=== PATIENT | female | born 1960 | race Caucasian/White ===

== ENCOUNTER 2019-06-10 08:01 | Outpatient (CLI) | payer BC, SELFPAY ==
--- NOTE | ~2019-06-10 | DEXA_ITS ---
Bone Density Report Name: Toma Sorto Age: 58 Sex: Female Ethnicity: White Date of : 1960 Indication: osteopenia; height loss; Referring Provider: NGA MUSA Study: Bone densitometry was performed. Exam Date: June 10, 2019 Accession number: [id number] Bone Density: Region BMD T-score Z-score Classification AP Spine (L1-L4) 0.762 -2.6 -1.4 Osteoporosis Femoral Neck (Left) 0.606 -2.2 -1.0 Osteopenia Total Hip (Left) 0.846 -0.8 0.0 Normal Total Hip Bilateral Avg 0.836 -0.9 -0.1 Normal Femoral Neck (Right) 0.644 -1.9 -0.7 Osteopenia Total Hip (Right) 0.825 -1.0 -0.2 Normal World Health Organization criteria for BMD impression classify patients as: Normal (T-score at or above -1.0), Osteopenia (T-score between -1.0 and -2.5), or Osteoporosis (T-score at or below -2.5). 10-year Fracture Risk: FRAX not reported because: Some T-score for Spine Total or Hip Total or Femoral Neck at or below -2.5 Previous Exams: Region Exam Age BMD T-score BMD Change BMD Change Date g/cm2 vs Baseline vs Previous AP Spine(L1-L4) 06/10/2019 58 0.762 -2.6 -0.022(-2.8%)# -0.048(-5.9%)* 06/03/2015 54 0.809 -2.2 0.026(3.3%)# 0.026(3.3%)# 01/23/2012 51 0.784 -2.4 Total Hip(Left) 06/10/2019 58 0.846 -0.8 -0.030(-3.5%)# -0.049(-5.5%)* 06/03/2015 54 0.895 -0.4 0.019(2.2%)# 0.019(2.2%)# 01/23/2012 51 0.876 -0.5 Total Hip(Right) 06/10/2019 58 0.825 -1.0 0.021(2.7%)# -0.028(-3.3%)* 06/03/2015 54 0.853 -0.7 0.050(6.2%)# 0.050(6.2%)# 01/23/2012 51 0.803 -1.1 *Denotes significance at 95% confidence level, LSC for AP Spine = 0.022 g/cm2, LSC for Total Hip = 0.027 g/cm2 Clinical Information Provided by Patient: Has used the following medications: Vitamin D, Calcium Patient maximum height was 67 Menopause Age: 51 Onset of menses at age 13 Number of children 0 Impression: The patient has osteoporosis, based on the Total Spine T-score. The BMD for the AP Spine(L1-L4) decreased, changing by -5.9% since the last DXA exam. The BMD for the Total Hip(Left) decreased, changing by -5.5% since the last DXA exam. The BMD for the Total Hip(Right) decreased, changing by -3.3% since the last DXA exam. Discussion: INCREASED RISK OF FRACTURE. BONE DENSITY IS UNDESIRABLY LOW AT ONE OR MORE SKELETAL SITES, CONSISTENT WITH POSTMENOPAUSAL OSTEOPOROSIS. This patient's lowest T-score meets the World Health Organization's (WHO) criteria for o
== END 2019-06-10 08:02 | disposition home or self-care (01) ==
LOC: ANHIMG 08:04
PROVIDERS: Visit Provider Obstetrics & Gynecology
DX: Z78.0 Asymptomatic menopausal state (principal); M81.0 Age-related osteoporosis without current pathological fracture; M85.852 Other specified disorders of bone density and structure, left thigh; M85.851 Other specified disorders of bone density and structure, right thigh
CPT/HCPCS: 77080

== ENCOUNTER 2019-12-02 13:11 | Outpatient (CLI) | payer BC, SELFPAY ==
[2019-12-02 14:13] LABS: Vitamin D 25 Hydroxy 57.4 ng/mL
== END 2019-12-02 13:12 | disposition home or self-care (01) ==
PROVIDERS: Visit Provider Obstetrics & Gynecology
DX: M81.0 Age-related osteoporosis without current pathological fracture (principal)
CPT/HCPCS: 36415; 82306

== ENCOUNTER 2020-04-29 07:20 | Outpatient (CLI) | payer BC, SELFPAY ==
--- NOTE | ~2020-04-29 | MM_ITS ---
EXAMINATION: MM screening [facility] BI w majo HISTORY: Screening mammogram TECHNIQUE: Craniocaudal and mediolateral oblique 3-D tomosynthesis images were obtained and synthetic 2-D images were generated. CAD analysis was submitted and interpreted. COMPARISON: 09/10/2018, 04/19/2017, 06/03/2015 BREAST PARENCHYMAL COMPOSITION: There are scattered areas of fibroglandular density. FINDINGS: There is no evidence of suspicious mass, calcification, or architectural distortion to sugg est malignancy in either breast. There has been no suspicious interval change. IMPRESSION: 1. No mammographic evidence of malignancy. 2. Recommend routine screening mammography in one year. BI-RADS Category 1: Negative Reviewed, dictated and finalized at location A. ION CONTROL COORDINATOR
== END 2020-04-29 07:21 | disposition home or self-care (01) ==
LOC: ANHIMG 07:23
PROVIDERS: Family Provider Family Medicine Adolescent Medicine; PCP Nurse Practitioner Family; Visit Provider Obstetrics & Gynecology
DX: Z12.31 Encounter for screening mammogram for malignant neoplasm of breast (principal)
CPT/HCPCS: 77063; 77067

== ENCOUNTER 2022-02-07 14:09 | Outpatient (CLI) | payer BC, SELFPAY ==
--- NOTE | ~2022-02-07 | MM_ITS ---
EXAMINATION: MM screening [facility] BI w majo HISTORY: Screening TECHNIQUE: Craniocaudal and mediolateral oblique 3-D tomosynthesis images were obtained and synthetic 2-D images were generated. CAD analysis was submitted and interpreted. COMPARISON: Comparison to multiple prior studies sequentially, with oldest reviewed study dated 06/13. BREAST PARENCHYMAL COMPOSITION: The breasts are almost entirely fatty. FINDINGS: There is no evidence of suspicious mass, calcification, or architectural distortion to sugg est malignancy in either breast. There has been no suspicious interval change. IMPRESSION: 1. No mammographic evidence of malignancy. 2. Recommend routine screening mammography in one year. BI-RADS Category 1: Negative Reviewed, dictated and finalized at location A. NG FLUSHER
--- NOTE | ~2022-02-07 | DEXA_ITS ---
Bone Density Report Name: SAM MELCHOR Age: 61 Sex: Female Ethnicity: White Date of : 1960 Indication: postmenopausal; screening for osteoporosis; height loss; Referring Provider: NGA MUSA Study: Bone densitometry was performed. Exam Date: February 07, 2022 Accession number: [id number] Bone Density: Region BMD T-score Z-score Classification AP Spine(L1-L4) 0.790 -2.3 -0.9 Osteopenia Femoral Neck (Left) 0.631 -2.0 -0.7 Osteopenia Total Hip (Left) 0.815 -1.0 -0.1 Normal Femoral Neck (Right) 0.690 -1.4 -0.1 Osteopenia Total Hip (Right) 0.785 -1.3 -0.3 Osteopenia Total Hip Mean 0.800 -1.2 -0.2 Osteopenia World Health Organization criteria for BMD impression classify patients as: Normal (T-score at or above -1.0), Osteopenia (T-score between -1.0 and -2.5), or Osteoporosis (T-score at or below -2.5). 10-year Fracture Risk(1): Major Osteoporotic Fracture 9.6% Hip Fracture 1.9% Reported Risk Factors: [place] (), Neck BMD=0.631, BMI=27.1, smoking (1) FRAX(R) Version 3.08. Fracture probability calculated for an untreated patient. Fracture probability may be lower if the patient has received treatment. Clinical Information Provided by Patient: Smokes Has used the following medications: Fosamax (i.e. alendronate), Vitamin D, Calcium Patient maximum height was 67 Menopause Age: 51 Onset of menses at age 13 Number of children 0 Impression: The patient has low bone mass, based on the Total Spine T-score. The patient has an estimated ten-year risk of hip fracture of 1.9% and an estimated ten-year risk of major fracture of 9.6%, based on the WHO FRAX algorithm. The patient has risk factors, including: smoking. Discussion: BONE DENSITY IS LOW AT ONE OR MORE SKELETAL SITES. This patient's lowest T-score is low at one or more skeletal sites. It meets the World Health Organization's (WHO) criteria for ?low bone mass? (T-score between -1.0 and -2.5). The patient's 10-year risk of fracture as calculated by FRAX is less than the threshold where pharmacological therapy is recommended by the National Osteoporosis Foundation (NOF). However, all treatment decisions require clinical judgment and consideration of individual patient factors, including patient preferences, comorbidities, previous drug use, risk factors not captured in the FRAX model (e.g., frailty, falls, vitamin D deficiency, increased bone turnover, interval significant decline in bone density) and possible under or overestimation of fracture risk by FRAX. The patient should follow a healthful lifestyle (good nutrition with adequate calcium and vitamin D, and appropriate weight-bearing exercise). Follow-Up: Consider repeating this study in 2 to 3 years to reassess this patient's status, or sooner if there is
== END 2022-02-07 14:10 | disposition home or self-care (01) ==
PROVIDERS: PCP Nurse Practitioner Family; Visit Provider Obstetrics & Gynecology
DX: Z12.31 Encounter for screening mammogram for malignant neoplasm of breast (principal); M81.0 Age-related osteoporosis without current pathological fracture; M85.88 Other specified disorders of bone density and structure, other site; M85.852 Other specified disorders of bone density and structure, left thigh; M85.851 Other specified disorders of bone density and structure, right thigh
CPT/HCPCS: 77063; 77067; 77080

== ENCOUNTER 2023-06-05 10:02 | Outpatient (CLI) | payer BC, SELFPAY ==
--- NOTE | ~2023-06-05 | MM_ITS ---
EXAMINATION: MM screening [facility] BI w majo HISTORY: Screening mammogram TECHNIQUE: Craniocaudal and mediolateral oblique 3-D tomosynthesis images were obtained and synthetic 2-D images were generated. CAD analysis was submitted and interpreted. COMPARISON: 02/07/2022 bilateral screening mammogram 04/29/2020 bilateral screening mammogram BREAST PARENCHYMAL COMPOSITION: The breasts are almost entirely fatty. FINDINGS: There is no evidence of suspicious mass, calcification, or architectural distortion to sugg est malignancy in either breast. There has been no suspicious interval change. IMPRESSION: 1. No mammographic evidence of malignancy. 2. Recommend routine screening mammography in one year. BI-RADS Category 1: Negative Reviewed, dictated and finalized at location A.
== END 2023-06-05 10:03 | disposition home or self-care (01) ==
PROVIDERS: PCP Nurse Practitioner Family; Visit Provider Obstetrics & Gynecology
DX: Z12.31 Encounter for screening mammogram for malignant neoplasm of breast (principal)
CPT/HCPCS: 77063; 77067

== ENCOUNTER 2024-05-02 00:53 | Day surgery (SDC) | payer BC, SELFPAY ==
[2024-04-23 08:22] VITALS: BMI 27.5
--- OUTSIDE RECORDS SUMMARY | 2024-05-02 00:56 | XMS_ITS | Clinical Summary ---
Author Organization [facility] Address [address] [place] [address] Care Team Providers Care Director Automotive Name Role Phone Unavailable Primary Care Provider Unavailabl e Immunizations Immunization Administration Dates Next Due Covid-19, Mrna, Lnp-s, PF, 1 00 mcg/0.5 mL Dose (Moderna) 01/28/2021 Social History Tobacco Use Types Packs/Day Years Used Date Smoking Tobacco: Never Assessed Comments Unknown Sex and Gender Information Value Date Recorded Sex Assigned at Not on file Legal Sex Female 9:07 AM CDT Gender Identity Not on file Sexual Orientation Not on file Plan of Treatment Health Maintenance Due Date Last Done Comments Hepatitis C Virus (HCV) Screening 1960 TdaP Immunization 1960 Pap Smear 1982 Cervical Cancer Screening (CCS) 11/23/1991 HPV/Cotest 11/23/1991 Colonoscopy 2006 Colorectal Cancer Screening 2006 Cologuard 11/23/2011 Immunochemical Fecal Occult Blood 11/23/2011 Mammogram 11/23/2011 Zoster Immunization (1 of 2) 11/23/2011 Influenza Immunization (#1) 2023 11/0 06/2020, 12/25/2019, 01/06/2019 SARS-COV-2 Immunization ( season) 2023 01/28/2021, 05/29/2020, 05/01/2020 Pneumococcal Immunization (5 0+ years) (3 of 3 - PCV20 or PCV21) 12/24/2024 12/25/2019, 01/06/2019 Respiratory Syncytial Virus (RSV) Immunization (Adult) (1 - 1-dose 75+ series) 2036 Pneumococcal Immunization Combined Discontinued 12/25/2019, 01/06/2019 Hepatitis B Immunization Aged Out No longer eligible based on patient's age to complete this topic Meningococcal Immunization (ACWY) Aged Out No longer eligible based on patient's age to complete this topic Rotavirus Immunization Aged Out No lo nger eligible based on patient's age to complete this topic
--- OUTSIDE RECORDS SUMMARY | 2024-05-02 00:57 | XMS_ITS | Data Portability ---
Author Organization [facility], Main Office Address [address] [place] [address] Assessment No assessment recorded. Plan of Treatment Reminders Order Date Submit Date Provider Last Modified By Organization Details Last Modified Time Details Appointments None recorded. Lab HbA1c (hemoglobin A1c), blood 2022 023 [email or web address] [id number] [facility] (Lab), [address] [place], [address], 3 10:12:44 CMP, serum or plasma [address] (Lab), [address] [place], [address], 3 09:07:25 CBC [address] (Lab), [address] [place], [address], 3 09:06:58 TSH, serum or plasma [address] (Lab), [address] [place], [address], 3 09:06:41 Referral None recorded. Procedures None recorded. Surgeries None recorded. Imaging None recorded. Medication Orders ketorolac 30 mg/mL (1 mL) injection solution 2022 023 [email or web address] Not available 3 11:12:19 triamcinolo ne acetonide 40 mg/mL suspension for injection 2022 023 [email or web address] o1 Not available 11:11:07 Patient TargetsNo targets recorded. Patient InstructionsNo instructions recorded. Reason for Referral None Reported. Results Created Date Observation Date Name Description Value Unit Range Abnormal Flag Note LastModifiedBy Organization Detail LastModifiedTime 08/30/1908/29/2022 CBC W/O DIFFE RENTI AL white blood cells 7.3 x10'3 /uL 4.2-10 .8 Not Available [facility] (Lab) [address] [place], [address], 08/29/2022 20:36:05 08/30/19 23 08/29/2022 CBC W/O DIFFE RENTI AL red blood cells 4.52 x10'6 /uL 3.80-5 .20 Not Available [facility] (Lab) [address] [place], [address], 08/29/2022 20:36:05 08/30/19 23 08/29/2022 CBC W/O DIFFE RENTI AL hemoglobin 13.7 g/dL 12.0-1 5.6 Not Available [facility] (Lab) [address] [place], [address], 08/29/2022 20:36:05 08/30/19 23 08/29/2022 CBC W/O DIFFE RENTI AL hematocrit 43.8 % 35.7-4 5.7 Not Available [facility] (Lab) [address] [place], [address], 08/29/2022 20:36:05 08/30/19 23 08/29/2022 CBC W/O DIFFE RENTI AL mean red cell volume 96.9 fL 82.0-9 9.0 Not Available [facility] (Lab) [address] [place], [address], 08/29/2022 20:36:05 08/30/19 23 08/29/2022 CBC W/O DIFFE RENTI AL mean red cell hemoglobin 30.3 pg 27.0-3 3.0 Not Available [facility] (Lab) [address] [place], [address], 08/29/2022 20:36:05 08/30/19 23 08/29/2022 CBC W/O DIFFE RENTI AL mean RBC HGB concentratio n 31.3 g/dL 31.0-3 6.0 Not Available [facility] (Lab) [address] [place], [address], 08/29/2022 20:36:05 08/30/19 23 08/29/2022 CBC W/O DIFFE RENTI AL red cell distribution width 12.6 % 11.8-1 5.5 Not Available [facility] (Lab) [address] [place], [address], 08/29/2022 20:36:05 08/30/19 23 08/29/2022 CBC W/O DIFFE RENTI AL platelets 298 x10'3 /uL 150-40 0 Not Available [facility] (Lab) [address] [place], [address], 08/29/2022 20:36:05 08/30/19 23 08/29/2022 CBC W/O DIFFE RENTI AL mean platelet volume 10.8 fL 9.0-12 .4 Not Available [facility] (Lab) [address] [place], [address], 08/29/2022 20:36:05 08/30/19 23 08/29/2022 COMPR EHENS HEIDY METAB OLIC PANEL sodium 141 mmol/ L 137-14 5 Not Available [facility] (Lab) [address] [place], [address], 08/29/2022 21:12:50 08/30/19 23 08/29/2022 COMPR EHENS HEIDY METAB OLIC PANEL potassium 5.3 mmol/ L 3.5-5. 1 high Not Available [facility] (Lab) [address] [place], [address], 08/29/2022 21:12:50 08/30/19 23 08/29/2022 COMPR EHENS HEIDY METAB OLIC PANEL chloride 103 mmol/ L 98-107 Not Available [facility] (Lab) [address] [place], [address], 08/29/2022 21:12:50 08/30/19 23 08/29/2022 COMPR EHENS HEIDY METAB OLIC PANEL carbon dioxide 31 mmol/ L 22-30 high Not Available [facility] (Lab) [address] [place], [address], 08/29/2022 21:12:50 08/30/19 23 08/29/2022 COMPR EHENS HEIDY METAB OLIC PANEL anion gap 12.3 mmol/ L 14-22 low Not Available [facility] (Lab) [address] [place], [address], 08/29/2022 21:12:50 08/30/19 23 08/29/2022 COMPR EHENS HEIDY METAB OLIC PANEL glucose 100 mg/dL 70-99 high Not Available [facility] (Lab) [address] [place], [address], 08/29/2022 21:12:50 08/30/19 23 08/29/2022 COMPR EHENS HEIDY METAB OLIC PANEL BUN 22 mg/dL 8-19 high Not Available [facility] (Lab) [address] [place], [address], 08/29/2022 21:12:50 08/30/19 23 08/29/2022 COMPR EHENS HEIDY METAB OLIC PANEL creatinine 0.75 mg/dL 0.66-1 .25 Not Available [facility] (Lab) [address] [place], [address], 08/29/2022 21:12:50 08/30/19 23 08/29/2022 COMPR EHENS HEIDY METAB OLIC PANEL GFR >60 Refer ence Range : [place] [facility] GFR Healt hy Adult : >60 mL/mi n/1.7 3 m2 Chron ic Kidne y Disea se: 15-60 mL/mi n/1.7 3 m2 Kidne y Failu re: <15/m L/min /1.73 m2 www.n iddk. nih.g ov The MDRD study equat ion has not been valid ated in child gaurang <18 years of age; pregn ant women ; the elder ly >85 years of age; or in some racia l or ethni c subgr oups, such as Hispa nics. Outsi de the valid ated xenia eters , estim ated GFR is less accur ate, requi ring clini reji judgm ent on a case- by-ca se basis . Clini reji inter preta tion for other races and ages must be made by the clini rohan. The MDRD study equat ion has not been valid ated for the evalu ation of serum creat inine relat ed to nutri scooter l statu s or medic ation usage . For perso ns <18 years of age, a pedia tric GFR calcu lator is avail able on the [facility] websi te: https ://jan eller.randell rutledge.o rg/pr ofess ional s/kdo qi/gf r_cal culat or Not Available [facility] (Lab) [address] [place], [address], 08/29/2022 21:12:50 08/30/19 23 08/29/2022 COMPR EHENS HEIDY METAB OLIC PANEL alkaline phosphatase 46 U/L 38-126 Not Available [facility] (Lab) [address] [place], [address], 08/29/2022 21:12:50 08/30/19 23 08/29/2022 COMPR EHENS HEIDY METAB OLIC PANEL alanine aminotransfe rase 21 U/L 0-35 Not Available [facility] (Lab) [address] [place], [address], 08/29/2022 21:12:50 08/30/19 23 08/29/2022 COMPR EHENS HEIDY METAB OLIC PANEL aspartate aminotransfe rase 33 U/L 15-37 Not Available [facility] (Lab) [address] [place], [address], 08/29/2022 21:12:50 08/30/19 23 08/29/2022 COMPR EHENS HEIDY METAB OLIC PANEL bilirubin, total 0.80 mg/dL 0.20-1 .30 Not Available [facility] (Lab) [address] [place], [address], 08/29/2022 21:12:50 08/30/19 23 08/29/2022 COMPR EHENS HEIDY METAB OLIC PANEL calcium 9.6 mg/dL 8.4-10 .2 Not Available [facility] (Lab) [address] [place], [address], 08/29/2022 21:12:50 08/30/19 23 08/29/2022 COMPR EHENS HEIDY METAB OLIC PANEL total protein 7.1 g/dL 6.3-8. 2 Not Available [facility] (Lab) [address] [place], [address], 08/29/2022 21:12:50 08/30/19 23 08/29/2022 COMPR EHENS HEIDY METAB OLIC PANEL albumin 4.1 g/dL 3.4-5. 0 Not Available [facility] (Lab) [address] [place], [address], 08/29/2022 21:12:50 08/30/19 23 08/29/2022 COMPR EHENS HEIDY METAB OLIC PANEL globulin 3.0 g/dL 2.6-4. 2 Not Available [facility] (Lab) [address] [place], [address], 08/29/2022 21:12:50 08/30/19 23 08/29/2022 COMPR EHENS HEIDY METAB OLIC PANEL A/G ratio 1.4 ratio 1.0-2. 0 Not Available [facility] (Lab) [address] [place], [address], 08/29/2022 21:12:50 08/30/19 23 08/29/2022 HEMOG LOBIN A1C HA1C 5.3 % 4.0-6. 0 Diabe joe Scree gin Crite olegario: <5.7% Consi stent with absen ce of diabe joe 5.7-6 .4% Consi stent with incre ased risk for diabe joe (pred iabet es) >OR=6 .5% Consi stent with diabe joe REFER ENCE: Diabe joe Care 2016, 39(Workman ppl.1 ):s13 -s22 Not Available [facility] (Lab) [address] [place], [address], 08/29/2022 21:20:12 08/30/19 23 08/29/2022 TSH thyroid-stim ulating hormone 1.500 uIU/m L 0.465- 4.680 Not Available [facility] (Lab) [address] [place], [address], 08/29/2022 21:27:53 02/08/20 22 02/07/2022 MAMMO , eve greenfield, bilat eral No observ ation record ed. [id number], [address], 05/24/2022 20:57:44 02/09/20 22 02/07/2022 DEXA No observ ation record ed. [id number], [address], 05/24/2022 20:57:44 07/18/19 23 07/17/2022 XR, hip + pelvi s, bilat eral No observ ation record ed. [email or web address] [facility] [address], [place], [address], 07/18/2022 09:40:15 06/05/19 24 06/05/2023 MAMMO , scree gin, digit al, bilat eral No observ ation record ed. [email or web address] [place] [address], [place], [address], 06/06/2023 10:04:09 Result Notes None recorded. Problems Name Problem SNOMED Code Status Onset Date Resolution Date Notes Provider Name and Address Organization Details Recorded Time Idiopathic peripheral neuropathy 07591904 Active 2019 Not Available [facility] 3 20:56:14 Femoral neuropathy 80609614 Active 2021 Not Available [facility] 3 20:56:14 Degenerati on of lumbar interverte bral disc 95831211 Active 2019 Not Available [facility] 3 20:56:14 Chronic low back pain 923367227 Active 2019 Not Available [facility] 3 20:56:14 Lateral epicondyli tis of right humerus 5337703682417 07 Active 2020 Not Available [facility] 3 20:56:14 Pain in right knee Active 2019 Not Available [facility] 3 20:56:15 Idiopathic small fiber peripheral neuropathy 7153072607486 02 Active 2019 Not Available [facility] 3 20:56:15 Neuropathy 908496884 Active 2019 Not Available [facility] 3 20:56:15 Foot pain 18300814 Active 2019 Not Available [facility] 3 20:56:15 Foot pain 78678153 Active 2019 Not Available [facility] 3 20:56:15 Lethargy 190751247 Active 2022 PEACE Dugan [address], [address], [place], [address] , [place] - [employer] 3 08:35:59 Problem Notes None recorded. Procedures Surgical History Date Name Laterality Status Provider Name and Address Organization Details Recorded Time 4 Most Recent Mammogram completed Feliciaesau Denis LPN [employer] 06/06/2023 10:04:25 Imaging Results Imaging Date Name Status LastModified by Organiz ation Details LastModified Time 02/07/2022 MAMMO, screening, bilateral completed [id number] [address] [place] [address], [address], 05/24/2022 20:57:44 02/07/2022 DEXA completed [id number] [place] [address] [place] [address], [address], 05/24/2022 20:57:44 07/17/2022 XR, hip + pelvis, bilateral completed [email or web address] [facility] [address], [place], [address], 07/18/2022 09:40:15 06/05/2023 MAMMO, screening, digital, bilateral completed [email or web address] [address], [address], 06/06/2023 10:04:09 Procedure Notes None recorded. Medical Equipment None Reported. Allergies No known drug allergies Medications Name Sig Start Date Stop Date Status Note LastModified by Organization Details LastModified Time cyclobenzap rine 10 mg tablet TAKE 1 TABLET BY MOUTH 3 TIMES A DAY FOR 10 DAYS active Not Available Not Available No t Available amoxicillin 500 mg capsule TAKE 1 CAPSULE BY MOUTH THREE TIMES A DAY UNTIL FINISHED active Not Available Not Available No t Available cetirizine 10 mg tablet TAKE 1 TABLET BY MOUTH EVERY DAY active Not Available Not Available No t Available valacyclovi r 1 gram tablet TAKE 1 TABLET BY MOUTH DAILY active Not Available Not Available No t Available hydrocodone 5 mg-acetamin ophen 325 mg tablet TAKE 1-2 TABLETS BY MOUTH EVERY 6 HOURS NEEDED FOR PAIN active Not Available Not Available No t Available prednisone 20 mg tablet Take 2 tablets every day by oral route for 5 days. 08/29 completed Not Available Not Available Not Available gabapentin 400 mg capsule TAKE 1 CAPSULE THREE TIMES A DAY active Not Available Not Available No t Available penicillin V potassium 500 mg tablet TAKE 1 TABLET BY MOUTH FOUR TIMES A DAY UNTIL GONE active Not Available Not Available No t Available tramadol 50 mg tablet TAKE 1 TABLET BY MOUTH EVERY 6 HOURS NEEDED 07/04 completed Not Available Not Available Not Available ketorolac 30 mg/mL (1 mL) injection solution Inject 1 mL every 6 hours by intramusc ular route. 2022 active Not Available Not Available Not Avai lable amoxicillin 500 mg tablet TAKE 1 TABLET BY MOUTH 4 TIMES A DAY UNTIL GONE active Not Available Not Available No t Available triamcinolo ne acetonide 40 mg/mL suspension for injection Take 40 mg by injection route. 2022 active Not Available Not Available Not Avai lable gabapentin 300 mg capsule TAKE 1 CAPSULE BY MOUTH THREE TIMES A DAY 11/10 completed Not Available Not Available Not Available amoxicillin 250 mg capsule TAKE 1 CAPSULE BY MOUTH 3 TIMES A DAY FOR 5 DAYS active Not Available Not Available No t Available gabapentin 100 mg capsule TAKE 1 CAPSULE BY MOUTH THREE TIMES A DAY NEEDED 10/27 completed Not Available Not Available Not Available doxycycline hyclate 20 mg tablet 08/29 completed Not Available Not Available Not Available acyclovir 5 % topical cream APPLY TO THE AFFECTED AREA(S) 5 TIMES DAILY UNTIL SYMPTOMS RESOLVE active Not Available Not Available No t Available ibandronate 150 mg tablet TAKE 1 TABLET BY MOUTH ONCE MONTHLY active Not Available Not Available No t Available mirabegron ER 25 mg tablet,exte nded release 24 hr TAKE 1 TABLET BY MOUTH EVERY DAY active Not Available Not Available No t Available Vitals Date Recorded Body mass index (BMI) Body mass index (BMI) Body height Body height Oxygen saturation Oxygen saturation in Arterial blood by Pulse oximetry Oxygen saturation Oxygen saturation in Arterial blood by Pulse oximetry Heart rate Heart rate Body temperature Body temperature Body weight Body weight Systolic blood pressure Diastolic blood pressure Systolic blood pressure Diastolic blood pressure Provider Name and Address Organization Details Last Updated DateTime 3 26.3 kg/m2 27 kg/m2 165.1 cm 165.1 cm 98 % 98 % 94 % 94 % 80 /min 67 /min 97.4 [degF] 98.1 [degF] 15711.5 9 g 72383.9 6 g 122 mm[Hg] 64 mm[Hg] 100 mm[Hg] 70 mm[Hg] Not Available [facility] 3 20:55:58 Date Recorded Body weight Body mass index (BMI) Body height Body temperature Heart rate Oxygen saturation Oxygen saturation in Arterial blood by Pulse oximetry Systolic blood pressure Diastolic blood pressure Provider Name and Address Organization Details Last Updated DateTime 3 66785.7 8 g 26.6 kg/m2 165.1 cm 97.6 [degF] 64 /min 98 % 98 % 120 mm[Hg] 78 mm[Hg] Tracy Denis RN [facility] 3 08:08:04 Date Recorded Body height Body mass index (BMI) Body weight Body temperature Heart rate Oxygen saturation Oxygen saturation in Arterial blood by Pulse oximetry Systolic blood pressure Diastolic blood pressure Provider Name and Address Organization Details Last Updated DateTime 3 165.1 cm 26.8 kg/m2 00082.3 7 g 97.5 [degF] 68 /min 97 % 97 % 118 mm[Hg] 88 mm[Hg] Tracy Denis RN [facility] 3 09:57:28 Date Recorded Body height Body mass index (BMI) Body weight Body temperature Heart rate Oxygen saturation Oxygen saturation in Arterial blood by Pulse oximetry Systolic blood pressure Diastolic blood pressure Provider Name and Address Organization Details Last Updated DateTime 4 165.1 cm 28.1 kg/m2 19171.1 1 g 97.2 [degF] 85 /min 99 % 99 % 134 mm[Hg] 78 mm[Hg] Jeny Pickard MA [facility] 4 12:06:32 Social History Question Answer Notes LastModified by Organizat ion Details LastModified Time Tobacco Smoking Status Former Smoker Not Available [facility] 05/24/2022 20:55:00 Do You Have An Advance Directive? No [id number] Information not available 05/24/2022 What Is Your Level Of Alcohol Consumption? Occasional MIGRATION.42357 45604 Information not available 05/24/2022 Do You Wear A Helmet When Biking? Yes MIGRATION.76898 97617 Information not available 05/24/2022 What Is Your Level Of Caffeine Consumption? Moderate MIGRATION.91114 23825 Information not available 05/24/2022 In The 14 Days Before Symptom Onset, Have You Had Close Contact With A Laboratory-confi rmed COVID-19 While That Case Was Ill? No MIGRATION.25496 70726 Information not available 05/24/2022 In The 14 Days Before Symptom Onset, Have You Had Close Contact With A Person Who Is Under Investigation For COVID-19 While That Person Was Ill? No MIGRATION.87060 40082 Information not available 05/24/2022 What Type Of Diet Are You Following? REGULAR MIGRATION.56494 10978 Information not available 05/24/2022 What Is The Highest Grade Or Level Of School You Have Completed Or The Highest Degree You Have Received? 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 No MIGRATION.02577 31555 Information not available 05/24/2022 What Is The Fluoride Status Of Your Home? Unknown MIGRATION.02019 95715 Information not available 05/24/2022 When Did You Quit Smoking? 1-5yearssincelastci anshulette MIGRATION.33925 01147 Information not available 05/24/2022 Are There Any Guns Present In Your Home? No MIGRATION.74973 93536 Information not available 05/24/2022 Do You Use Insect Repellent Routinely? Yes MIGRATION.56569 03234 Information not available 05/24/2022 Where Do You Live? [place]LevelHouse MIGRATION.93474 38188 Information not available 05/24/2022 Do You Have A Medical Power Of Home Sales Service Professional? No MIGRATION.65980 10135 Information not available 05/24/2022 Do You Have Any Pets? No MIGRATION.24415 79366 Information not available 05/24/2022 What Is Your Relationship Status? Single MIGRATION.84176 61897 Information not available 05/24/2022 Do You Use Your Seat Belt Or Car Seat Routinely? Yes MIGRATION.91269 19323 Information not available 05/24/2022 Do You Have Smoke And Carbon Monoxide Detectors In Your Home? Yes MIGRATION.87988 45838 Information not available 05/24/2022 At What Age Did You Start Smoking Tobacco? 13 MIGRATION.36829 49631 Information not available 05/24/2022 Are You Passively Exposed To Smoke? No MIGRATION.83688 29746 Information not available 05/24/2022 Are There Any Smokers In Your House? No MIGRATION.91457 83312 Information not available 05/24/2022 Do You Participate In Social Media? No MIGRATION.40621 23504 Information not available 05/24/2022 Do You Feel Stressed (tense, Restless, Nervous, Or Anxious, Or Unable To Sleep At Night)? [id number] MIGRATION.58026 44179 Information not available 05/24/2022 Do You Use Any Illicit Or Recreational Drugs? No MIGRATION.70195 47680 Information not available 05/24/2022 Do You Use Sunscreen Routinely? Yes MIGRATION.59566 34039 Information not available 05/24/2022 How Many Years Have You Smoked Tobacco? 40 MIGRATION.67934 65441 Information not available 05/24/2022 Have You Recently Traveled Abroad? No MIGRATION.03032 44558 Information not available 05/24/2022 Are You Currently In School? No MIGRATION.64713 80512 Information not available 05/24/2022 Do You Have Any Dietary Restrictions? No MIGRATION.57502 59311 Information not available 05/24/2022 Sex: Unknown Functional Status Question Answer Note LastModified by Organizat ion Details LastModified Time What is your exercise level? Moderate [id number] Information not available 05/24/2022 Mental Status None recorded. Family History Nothing Reported. Medical History No medical history recorded. Gynecological History Statement/Question Response Most Recent Mammogram 06/05/2023 Obstetrics History GPAL:G 0 P 0 0 0 0 Immunizations Vaccine Type Date Status Note Provider Nam e and Address Organization Details Recorded Time pneumococcal polysaccharide PPV23 0 completed Not Available [facility] 05/24/2022 20:57:37 Influenza, split virus, quadrivalent, PF 9 completed Not Available [facility] 05/24/2022 20:57:37 Pneumococcal conjugate PCV 13 9 completed Not Available [facility] 05/24/2022 20:57:38 Influenza, split virus, quadrivalent, PF 1 completed Not Available [facility] 05/24/2022 20:57:38 Influenza, split virus, quadrivalent, PF 0 completed Not Available [facility] 05/24/2022 20:57:38 zoster recombinant 2 completed PEACE Dugan [address], [address], [place], [address], [employer] 09/12/2022 10:20:00 zoster recombinant 3 completed PEACE Dugan [address], [address], [place], [address], [employer] 09/12/2022 10:20:15 SARS-COV-2 (COVID-19) vaccine, UNSPECIFIED 1 completed PEACE Dugan [address], [address], [place], [address], [employer] 09/12/2022 10:20:47 SARS-COV-2 (COVID-19) vaccine, UNSPECIFIED 1 completed PEACE Dugan [address], [address], [place], [address], [employer] 09/12/2022 10:20:56 SARS-COV-2 (COVID-19) vaccine, UNSPECIFIED 1 completed PEACE Dugan [address], [address], [place], [address], [employer] 09/12/2022 10:21:05 SARS-COV-2 (COVID-19) vaccine, UNSPECIFIED 2 completed PEACE Dugan [address], [address], [place], [address], [employer] 09/12/2022 10:21:16 Tdap 3 completed PEACE Dugan [address], [address], [place], [address], [employer] 08/29/2022 13:32:30 Past Encounters Encounter ID Performer Location Encounter Start Date Encounter Closed Date Diagnosis/Indication Diagnosis SNOMED-CT Code Diagnosis ICD10 Code Diagnosis Note [id number] [facility] [place] [address] [facility] [address] [place] [address] 01/27/2021 00:00:00 01/27/2021 14:15:30 [id number] [facility] [place] [address] [facility] [address] [place] [address] 02/10/2021 00:00:00 02/10/2021 09:37:39 [id number] [facility] [place] [address] [place] [address] [address] [place] [address] 05/03/2021 00:00:00 05/03/2021 12:31:35 [id number] [facility] [place] [address] [place] [address] [address] [place] [address] 06/27/2021 00:00:00 06/27/2021 09:14:36 [id number] [facility] [place] [address] [place] [address] [address] [place] [address] 08/12/2021 00:00:00 08/12/2021 13:31:48 [id number] PEACE Dugan [facility] [place] [address] [place] [address] [address] [place] [address] 08/29/2022 07:56:38 08/29/2022 08:56:55 Lethargy 573017699 R53.83 R53.81 New problemRec urrenChong check labs to evaluate for thyroid dyfunction , anemia, and DM. Dx are likely d/t mild dehydratio n and/or hypoglycem ia d/t irregular meals. Administra tion of diphtheria, pertussis, and tetanus vaccine 868965603 Z23 Diabetes m ellitus screening 291680185 Z13.1 Will check labs to evaluate for electrolyt e dysfunctio n or diabetes. Idiopathic small fiber peripheral neuropathy 5474267435 01122 G60.8 ChronicMin imal improvemen t with gabapentin . Pt states rest helps more. Pt indicates she is struggling to work more than 8hr shifts and would like restrictio ns to keep from working more than 8hrs/day. Will update FMFL forms for intermitte nt leave. [id number] PEACE Dugan [facility] Primary [facility] [address] [facility] [address] [place] [address] 09/12/2022 09:28:47 09/12/2022 10:49:29 Idiopathic small fiber peripheral neuropathy 3076303559 45667 G60.8 ChronicMin imal improvemen t with gabapentin . Pt states rest helps more. Pt indicates she is struggling to work more than 8hr shifts. Has FMLA documentat ion with restrictio ns to keep from working more than 8hrs/day. Work note given. Lethargy 015513209 R53.8 3 R53.81 New problemRec urrentLabs neg for thyroid dysfunctio n, anemia, and DM (08/29/22). Sx are likely d/t mild dehydratio n and/or hypoglycem ia d/t irregular meals. Diabetes m ellitus screening 601634861 Z13.1 A1C wnl (08/29/22) [id number] PEACE Lopez-C [facility] Primary Care [facility] [address] [facility] [address] [place] [address] 07/05/2023 11:57:01 07/05/2023 12:31:05 Idiopathic small fiber peripheral neuropathy 4318410036 49927 G60.8 -pt is needing here [facility] paperwork to be updated-pa in continues to be manageable with medication s (hitesh)-ROM and strength are limited to pain-she is also needing a note for work restrictin g her to 8hrs/day-n ote generated- paperwork completed, pt to come grain picker all of her paperwork Health Concerns Section Related Observation LastModified by Organization Detai ls LastModified Time None Recorded Concern Status LastModified by Organization Details LastModified Time None Recorded Advance Directives Directive N: Payers Encounter Date Sequence Insurance Name Policy Number Policy Winston Covered Member ID Winston Member ID Guarantor Name 08/29/2022 1 [place] [id number] Toma Sorto [id number] Toma Sorto 09/12/2022 1 [place]) [id number] Toma Sorto [id number] Toma Sorto 07/05/2023 1 [place] [id number] Toma Sorto [id number] Toma Sorto Notes Date Note Type Note Provider Name and Address Organization Details Recorded Time 08/29/2022 text/html 1. Pt in office for f/u on chronic neuropathy sx in legs/feet. Pt reports she got minimal improvement with gabapentin. Pt states rest helps more. Pt indicates she is struggling to work more than 8hr shifts and would like restrictions to keep from working more than 8hrs/day. Needs updated fmla forms. Pt states neuropathy sx worse in right leg than left.2. Pt states she had issues with right hip about 6 weeks ago. States she got an xray, but nothing was there. States it's getting better over time. 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 Pt states she sometimes feels a bit lethargic. Thinks it might be d/t poor hydration or missing meals when she is busy. Pt states that she usually feels better a bit later after eating and drinking more. Giovanni Mcqueen, [employer]GY [employer] [address], [facility] [address], [place], [address], [place] [employer] [facility] [employer] 08/29/2022 13:38:40 09/12/2022 text/html 09/12/22: 1. Pt i n office for 2 week f/u on lab results.2. Pt states she has called off work for the past 3 days b/c her back and legs have been hurting a lot. Pt states she is planning to go back to work tomorrow. 08/29/22: 1. Pt in office for f/u on chronic neuropathy sx in legs/feet. Pt reports she got minimal improvement with gabapentin. Pt states rest helps more. Pt indicates she is struggling to work more than 8hr shifts and would like restrictions to keep from working more than 8hrs/day. Needs updated fmla forms. Pt states neuropathy sx worse in right leg than left.2. Pt states she had issues with right hip about 6 weeks ago. States she got an xray, but nothing was there. States it's getting better over time. 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 Pt states she sometimes feels a bit lethargic. Thinks it might be d/t poor hydration or missing meals when she is busy. Pt states that she usually feels better a bit later after eating and drinking more. PEACE Dugan [address], [place] [address], [place], [address], [employer] 09/12/2022 16:53:17 07/05/2023 text/html pt is here for fmla f/u STEFANY Lopez [address], [facility] [address], [place], [address], [employer] 07/06/2023 09:55:22 OBGyn Episode No OBEpisode recorded.
--- OUTSIDE RECORDS SUMMARY | 2024-05-02 00:57 | XMS_ITS | CONTINUITY OF CARE DOCUMENT ---
Author Name cindy white Address Unknown Organization [facility] Address [address] [place] [address] Phone [phone] Care Team Providers Care Scout Sniper Name Role Phone cindy white Unavailable Unavailable
[2024-05-02 06:44] VITALS: BP 121/79; PULSE 73; RESP 16; TEMP 35.9; O2SAT 100; BMI 26.5
[2024-05-02] MEDS: LACTATED RINGERS 1,000 ML 150 ML IV CONT (07:08)
--- NOTE | 2024-05-02 07:49 | P.PNAN_ITS ---
Anes - Initial Pre Proc Eval Procedure: Operation Date: 05/02/24 08:00 Proposed Procedures p Screening Colonoscopy - Luis Hancock MD Date/Time: 05/02/24 07:49 Surgeon: Luis Hancock MD Pre Op Diagnosis: screening colon Patient Data Age: 63 Gender: F Height: 1.65 m Weight: 72.3 kg Last Vital Signs Temp 35.9 C L 05/02/24 06:44 Pulse 73 05/02/24 06:44 Resp 16 05/02/24 06:44 BP 121/79 05/02/24 06:44 Pulse Ox 100 05/02/24 06:44 O2 Del Method Room Air 05/02/24 06:44 Allergies Allergy/AdvReac Type Severity Reaction Status Date / Time No Known Allergies Allergy Mild Verified 05/02/24 06:48 Home Medications ?Medication ?Instructions ?Recorded ?Confirmed ?Type cetirizine 10 mg capsule (Zyrtec) 10 mg PO DAILY 12/02/19 05/02/24 History gabapentin 300 mg capsule 1,200 mg PO TID 12/14/20 05/02/24 History valacyclovir 1 gram tablet 1,000 mg PO DAILY #90 tabs 12/25/22 05/02/24 Rx (Valtrex) mirabegron 25 mg tablet,extended 25 mg PO DAILY #90 tabs 04/24/24 05/02/24 Rx release 24 hr (Myrbetriq) ibandronate 150 mg tablet 150 mg PO MONTHLY #3 tabs 04/29/24 05/02/24 Rx Patient hx anesthesia problems: none Family hx anesthesia problems: none Results Review: All pre-operative results and documents have been reviewed as part of the pre- operative evaluation. [facility] Past Medical History Medical History Disorder of femoral nerve Osteoporosis Asthma Depression HSV (herpes simplex virus) infection Osteopenia Surgical History Surgical History [place] teeth removed History of back surgery Social History Social History Smoking packs per day: 0.5 Smoking cigarettes per day: 10.0 Years smoked: 40 Smoking pack-years: 20.00 Smoking status: Former smoker Tobacco type: cigarettes and e-cigarettes/vaping Additional smoking assessment comments: Patient currently vaping Alcohol intake: never Substance use: never Lack of Transportation: No Lack of Food: Never True Current Housing: I Have Housing Concerned About Future Housing: No Difficulty Paying Gas/Electric Bills: No Difficulty Paying for Meds: No Currently Unemployed: No Difficulty w/ Childcare or Family Care: No Living arrangements: alone Spiritual care concerns: No Anes - Eval Final PreProcedure Day of Procedure 05/02/24 07:49 Patient weight: overweight Heart: regular rate and rhythm Lungs: clear to auscultation Airway: Mallampati scale class II Neurological: alert and oriented Last oral intake: >/= 8 hours ASA classification: II Emergent: no Anesthetic plan: proceed Anesthesia type and monitoring: general GIVS and standard monitoring Results Review: All pre-operative results and documents have been reviewed as part of the pre- operative evaluation. Informed Consent: The patient's anesthetic plan and its attendant risks and benefits were discussed with the patient/family/POA. Questions were solicited and answers provided to the satisfaction of the patient/family/POA.
--- NOTE | 2024-05-02 08:21 | P.HP_ITS ---
H&P: HPI History of Present Illness Date/Time: 05/02/24 08:21 Chief Complaint: screening colonoscopy Narrative: This is the patient's colonoscopy after more than 10 years There are no GI symptoms and there is no family history of colorectal cancer. Review of Systems Review of Systems: All systems reviewed & are unremarkable except as noted in HPI and below PMFSH Past Medical History Medical History Disorder of femoral nerve Osteoporosis Asthma Depression HSV (herpes simplex virus) infection Osteopenia Surgical History Surgical History [place] teeth removed History of back surgery Social History Social History Smoking packs per day: 0.5 Smoking cigarettes per day: 10.0 Years smoked: 40 Smoking pack-years: 20.00 Smoking status: Former smoker Tobacco type: cigarettes and e-cigarettes/vaping Additional smoking assessment comments: Patient currently vaping Alcohol intake: never Substance use: never Lack of Transportation: No Lack of Food: Never True Current Housing: I Have Housing Concerned About Future Housing: No Difficulty Paying Gas/Electric Bills: No Difficulty Paying for Meds: No Currently Unemployed: No Difficulty w/ Childcare or Family Care: No Living arrangements: alone Spiritual care concerns: No Meds Home Medications and Allergies Home Medications ?Medication ?Instructions ?Recorded ?Confirmed ?Type cetirizine 10 mg capsule (Zyrtec) 10 mg PO DAILY 12/02/19 05/02/24 History gabapentin 300 mg capsule 1,200 mg PO TID 12/14/20 05/02/24 History valacyclovir 1 gram tablet 1,000 mg PO DAILY #90 tabs 12/25/22 05/02/24 Rx (Valtrex) mirabegron 25 mg tablet,extended 25 mg PO DAILY #90 tabs 04/24/24 05/02/24 Rx release 24 hr (Myrbetriq) ibandronate 150 mg tablet 150 mg PO MONTHLY #3 tabs 04/29/24 05/02/24 Rx Allergies Allergy/AdvReac Type Severity Reaction Status Date / Time No Known Allergies Allergy Mild Verified 05/02/24 06:48 Vital Signs Vital Signs - 24 hr 02/07/25 06:44 Temperature 96.7 F L Pulse Rate 73 Respiratory Rate 16 Blood Pressure 121/79 Pulse Oximetry 100 Oxygen Delivery Room Air Exam Const: General: cooperative and healthy appearing Resp: Effort & Inspection: normal respiratory effort and able to speak in complete sentences Auscultation: clear to auscultation bilaterally Cardio: Rate: regular rate Rhythm: regular rhythm GI: Inspection: normal to inspection GI Palp: No No hepatosplenomegaly present Auscultation: normal bowel sounds Rectal Exam: deferred Skin: General skin exam: normal color Psych: Appearance: grossly normal Mental Status: mental status grossly normal Assessment and Plan Assessment and plan (1) Colon cancer screening: Code(s): Z12.11 - Encounter for screening for malignant neoplasm of colon Status: Acute Assessment and Plan: The patient is deemed a good candidate for the procedure. Consent signed. Will proceed.
[2024-05-02 08:40] VITALS: BP 85/53; PULSE 61; RESP 17; O2SAT 100
--- NOTE | 2024-05-02 08:47 | PM.IMHP ---
H&P: HPI History of Present Illness Date/Time: 05/02/24 08:47 Chief Complaint: Screening colonoscopy Narrative: This is the patient's first colonoscopy. There are no GI symptoms and there is no family history of colorectal cancer. Review of Systems Review of Systems: All systems reviewed & are unremarkable except as noted in HPI and below PMFSH Past Medical History Medical History Disorder of femoral nerve Osteoporosis Asthma Depression HSV (herpes simplex virus) infection Osteopenia Surgical History Surgical History [place] teeth removed History of back surgery Social History Social History Smoking packs per day: 0.5 Smoking cigarettes per day: 10.0 Years smoked: 40 Smoking pack-years: 20.00 Smoking status: Former smoker Tobacco type: cigarettes and e-cigarettes/vaping Additional smoking assessment comments: Patient currently vaping Alcohol intake: never Substance use: never Lack of Transportation: No Lack of Food: Never True Current Housing: I Have Housing Concerned About Future Housing: No Difficulty Paying Gas/Electric Bills: No Difficulty Paying for Meds: No Currently Unemployed: No Difficulty w/ Childcare or Family Care: No Living arrangements: alone Spiritual care concerns: No Meds Home Medications and Allergies Home Medications ?Medication ?Instructions ?Recorded ?Confirmed ?Type cetirizine 10 mg capsule (Zyrtec) 10 mg PO DAILY 12/02/19 05/02/24 History gabapentin 300 mg capsule 1,200 mg PO TID 12/14/20 05/02/24 History valacyclovir 1 gram tablet 1,000 mg PO DAILY #90 tabs 12/25/22 05/02/24 Rx (Valtrex) mirabegron 25 mg tablet,extended 25 mg PO DAILY #90 tabs 04/24/24 05/02/24 Rx release 24 hr (Myrbetriq) ibandronate 150 mg tablet 150 mg PO MONTHLY #3 tabs 04/29/24 05/02/24 Rx Allergies Allergy/AdvReac Type Severity Reaction Status Date / Time No Known Allergies Allergy Mild Verified 05/02/24 06:48 Vital Signs Vital Signs - 24 hr 05/02/24 06:44 Temperature 96.7 F L Pulse Rate 73 Respiratory Rate 16 Blood Pressure 121/79 Pulse Oximetry 100 Oxygen Delivery Room Air Exam Const: General: cooperative and healthy appearing Resp: Effort & Inspection: normal respiratory effort and able to speak in complete sentences Auscultation: clear to auscultation bilaterally Cardio: Rate: regular rate Rhythm: regular rhythm GI: Inspection: normal to inspection GI Palp: No No hepatosplenomegaly present Auscultation: normal bowel sounds Rectal Exam: deferred Skin: General skin exam: normal color Psych: Appearance: grossly normal Mental Status: mental status grossly normal Assessment and Plan Assessment and plan (1) Colon cancer screening: Code(s): Z12.11 - Encounter for screening for malignant neoplasm of colon Status: Acute Assessment and Plan: The patient is deemed a good candidate for the procedure. Consent signed. Will proceed.
[2024-05-02 08:50] VITALS: BP 121/71; PULSE 62; RESP 18; O2SAT 100
[2024-05-02 09:00] VITALS: BP 120/65; PULSE 66; RESP 20; O2SAT 100
== END 2024-05-02 09:12 | disposition home or self-care (01) ==
PROVIDERS: PCP Nurse Practitioner Family; Referring Provider Obstetrics & Gynecology; Visit Provider Internal Medicine Gastroenterology
PROC: 0DJD8ZZ Inspection of Lower Intestinal Tract, Via Natural or Artificial Opening Endoscopic (ICD-10-PCS; CPT 45378; principal; 2024-05-02 08:00)
DX: Z12.11 Encounter for screening for malignant neoplasm of colon (principal); K57.30 Diverticulosis of large intestine without perforation or abscess without bleeding; K64.8 Other hemorrhoids; F17.290 Nicotine dependence, other tobacco product, uncomplicated
CPT/HCPCS: 45378; J2003; J2704; J7120

== ENCOUNTER 2025-01-26 07:26 | Outpatient (CLI) | payer BC, SELFPAY ==
--- OUTSIDE RECORDS SUMMARY | 2000-12-03 04:45 | XMS_ITS | Continuity of Care Document ---
Author Organization [facility] Address [address] [place] [address] [address] [place] [address] Phone Care Team Providers Care Mill Operator Helper Name Role Phone Reji Arciniega Unavailable Unavailable Advance Directives Directive Yes / No Effective Date File Name No Information Encounters Encounter Description Practice Location Reason(s) For Visit Diagnoses Date Provider Providers Copied on Encounter [facility], [address], [place], [place], [id number], [place] tel:[phone] [facility] No Information Sep-1 0-200 1 Luanasy Edward. [address] , [address], [place], [address], [place]. tel:[phone] Family History Family Member Type Diagnosis Age At Onset No Information Payers Payer name Insurance type Covered constitution party ID Authoriza tion(s) [employer] SOI CI [id number] Social History Type Description Quantity Date Captured Comments Sex Female Smoking Status No Information Chief Complaint And Reason For Visit No Information Reason For Referral Reason For Referral No Information History Of Present Illness Encounter Date Complaint History Of Prese nt Illness No Information Functional Status Date Functional Assessmen t No Information Instructions Date Instruction Additional Infor mation No Information Assessments Type Assessment Date No Information Patient Care Teams Name Effective Dates (start - stop) Status Members No Information
--- NOTE | ~2025-01-26 | DEXA_ITS ---
Bone Density Report Name: SAM MELCHOR Age: 64 Sex: Female Ethnicity: White Date of : 1960 Indication: osteopenia; height loss; prior fracture; asthma or emphysema; Referring Provider: NGA MUSA Study: Bone densitometry was performed. Exam Date: January 26, 2025 Accession number: [id number] Bone Density: Region BMD T-score Z-score Classification AP Spine(L1-L4) 0.778 -2.4 -0.8 Osteopenia Femoral Neck (Left) 0.633 -1.9 -0.5 Osteopenia Total Hip (Left) 0.843 -0.8 0.3 Normal Femoral Neck (Right) 0.629 -2.0 -0.6 Osteopenia Total Hip (Right) 0.807 -1.1 0.0 Osteopenia Total Hip Mean 0.825 -1.0 0.2 Normal World Health Organization criteria for BMD impression classify patients as: Normal (T-score at or above -1.0), Osteopenia (T-score between -1.0 and -2.5), or Osteoporosis (T-score at or below -2.5). 10-year Fracture Risk: FRAX not reported because: Prior hip or vertebral fracture Previous Exams: Region Exam Age BMD T-score BMD Change BMD Change Date g/cm2 vs Baseline vs Previous AP Spine (L1-L4) 01/26/2025 64 0.778 -2.4 -0.005 (-0.6%) -0.012 (-1.5%) 02/07/2022 61 0.790 -2.3 0.007 (0.8%)# 0.028 (3.7%)* 06/10/2019 58 0.762 -2.6 -0.022 (-2.8%) -0.048 (-5.9%) 06/03/2015 54 0.809 -2.2 0.026 (3.3%)# 0.026 (3.3%)# 01/23/2012 51 0.784 -2.4 Total Hip(Left) 01/26/2025 64 0.843 -0.8 -0.034 (-3.8%) 0.027 (3.4%)* 02/07/2022 61 0.815 -1.0 -0.061 (-7.0%) -0.031 (-3.6%) 06/10/2019 58 0.846 -0.8 -0.030 (-3.5%) -0.049 (-5.5%) 06/03/2015 54 0.895 -0.4 0.019 (2.2%)# 0.019 (2.2%)# 01/23/2012 51 0.876 -0.5 Total Hip(Right) 01/26/2025 64 0.807 -1.1 0.003 (0.4%)# 0.022 (2.8%) 02/07/2022 61 0.785 -1.3 -0.018 (-2.3%) -0.040 (-4.8%) 06/10/2019 58 0.825 -1.0 0.021 (2.7%)# -0.028 (-3.3%) 06/03/2015 54 0.853 -0.7 0.050 (6.2%)# 0.050 (6.2%)# 01/23/2012 51 0.803 -1.1 *Denotes significance at 95% confidence level, LSC for AP Spine = 0.022 g/cm2, LSC for Total Hip = 0.027 g/cm2 # Denotes dissimilar scan types or analysis methods Clinical Information Provided by Patient: Have had a previous hip or vertebral fracture Has had a low trauma fracture Has used the following medications: Boniva (i.e. ibandronate), Fosamax (i.e. alendronate), Vitamin D, Calcium Has the following medical conditions: Asthma or Emphysema Patient maximum height was 67 Menopause Age: 51 Drinks caffeinated beverages Onset of menses at age 13 Number of children 0 Impression: The patient has low bone mass, based on the Total Spine T-score. The patient has risk factors, including: previous fracture. No significant bone loss was observed. Discussion: INCREASED RISK OF FRACTURE DUE TO HISTORY OF FRACTURE. The patient's previous fracture puts the patient at high risk of a future fracture. In untreated patients, the risk of osteoporotic fracture increases approximately two-fold for each 1.0 SD decrease in T-score. Low bone density is not the only risk factor for fracture; also consider factors such as patient's age, frailty or poor health, risk of falling, risk of injury, previous osteoporotic fracture, family history of osteoporosis, cigarette smoking, low body weight, etc. Not everyone with a low trauma fracture has osteoporosis; osteomalacia and other metabolic bone disorders should also be considered. Patients who have osteoporosis should be evaluated for specific diseases and conditions (secondary causes) that may cause or contribute to bone loss and fracture risk. National Osteoporosis Foundation (NOF) recommends pharmacologic intervention for patients with a prior hip or vertebral fracture regardless of BMD T-score. The patient should follow a healthful lifestyle (good nutrition with adequate calcium and vitamin D, and appropriate weight-bearing exercise). Follow-Up: Consider a repeat BMD and Vertebral Fracture Assessment (VFA) exam in 2 years or sooner if medically necessary, to reassess this patient's status. Reported by: RITA on 01/26/2025 8:14:00 AM. Reviewed, dictated and finalized at location A.
--- NOTE | ~2025-01-26 | MM_ITS ---
EXAMINATION: MM screening teodoro BI w majo HISTORY: Screening TECHNIQUE: Craniocaudal and mediolateral oblique 3-D tomosynthesis images were obtained and synthetic 2-D images were generated. CAD analysis was submitted and interpreted. COMPARISON: Comparison to multiple prior studies sequentially, with oldest reviewed study dated , 09/10/2018 BREAST PARENCHYMAL COMPOSITION: The breasts are almost entirely fatty. FINDINGS: There is no evidence of suspicious mass, calcification, or architectural distortion to suggest malignancy in either breast. IMPRESSION: 1. No mammographic evidence of malignancy. 2. Recommend routine screening mammography in one year. BI-RADS Category 1: Negative Reviewed, dictated and finalized at location B. E [employer]
--- OUTSIDE RECORDS SUMMARY | 2025-01-26 07:30 | XMS_ITS | Clinical Summary ---
Author Organization [facility] Address [address] [place] [address] Care Team Providers Care Government Affairs Manager Name Role Phone Unavailable Primary Care Provider [...] Cervical Cancer Screening (CCS) 11/23/1991 HPV/Cotest 11/23/1991 Cologuard 2006 Colonoscopy 2006 Colorectal Cancer Screening 2006 Immunochemical Fecal Occult Blood 2006 Zoster Immunization (1 of 2) 11/23/2011 Influenza Immunization (#1) 2024 11/0 06/2020, 12/25/2019, 01/06/2019 SARS-COV-2 Immunization ( season) 2024 01/28/2021, 05/29/2020, 05/01/2020 Pneumococcal Immunization (5 0+ years) (3 of 3 - PCV20 or PCV21) 12/24/2024 12/25/2019, 01/06/2019 Respiratory Syncytial Virus (RSV) Immunization (Adult) (1 - 1-dose 75+ series) 2036 Pneumococcal Immunization Combined Discontinued 12/25/2019, 01/06/2019 Hepatitis B Immunization Aged Out No longer eligible based on patient's age to complete this topic Human Papillomavirus (HPV) Immunization Aged Out No longer eligible based on patient's age to complete this topic Meningococcal Immunization (ACWY) Aged Out No longer eligible based on patient's age to complete this topic Rotavirus Immunization Aged Out No lo nger eligible based on patient's age to complete this topic
== END 2025-01-26 07:27 | disposition home or self-care (01) ==
LOC: ANHFOHIMG 07:28
PROVIDERS: PCP Nurse Practitioner Family; Visit Provider Obstetrics & Gynecology
DX: Z12.31 Encounter for screening mammogram for malignant neoplasm of breast (principal); Z78.0 Asymptomatic menopausal state; M85.88 Other specified disorders of bone density and structure, other site; M85.852 Other specified disorders of bone density and structure, left thigh; M85.851 Other specified disorders of bone density and structure, right thigh
CPT/HCPCS: 77063; 77067; 77080